=== PATIENT | female | born 1985 | race Caucasian/White ===

== ENCOUNTER 2020-07-28 09:15 | Emergency (ER) | payer SELFPAY ==
[2020-07-28] MEDS ORDERED: KETOROLAC TROMETHAMINE 60 MG/2 ML SDV IM ONE (10:40)
--- NOTE | 2020-07-28 10:56 | ER Document Report ---
ED ENT - General Chief Complaint: Ear Pain Stated Complaint: HEADACHE,EAR PAIN Time Seen by Provider: 07/28/20 10:09 Primary Care Provider: MANOJ SALINAS MD [ACTIVE STAFF] - (Make an appointment for follow up in 2 weeks) Mode of Arrival: Ambulatory - [facility] Location of pain: Ears, Jaw Associated symptoms: Ear drainage. denies: Barotrauma, Chills, Congestion, Cough, Dental pain, Difficulty swallowing Notes: Patient is a healthy 34-year-old female who presents with left ear pain. Patient states that she went swimming in the ocean about 1 week ago. Symptoms began on Monday. She states there was left ear pain. She also heard a pop which helped with the pressure in her ear. She mentions some muffled hearing. Patient has been taking Clindamycin that she had at home, 300 mg 4 times a day since Monday with little relief. States she does have a headache that she attributes to the ear pain. No pain behind the left ear. She also states pain radiates to her jaw. She states that there is some drainage from the left ear that is worse at night with some blood in it. She has had ear infections as a child after swimming. No fevers or chills. - Related Data Allergies/Adverse Reactions: Penicillins Allergy (Verified 07/28/20 09:34) Hives codeine Adverse Reaction (Verified 07/28/20 09:34) GI upset Home Medications: denies Past Medical History - General Information source: Patient - Social History Smoking Status: Current Every Day Smoker Chew tobacco use (# tins/day): No Frequency of alcohol use: Social Drug Abuse: None Family History: Reviewed & Not Pertinent Patient has homicidal ideation: No - Medical History Medical History: Negative - Past Medical History Cardiac Medical History: Reports: None Past Surgical History: Reports: Hx Section - x1 Review of Systems - Review of Systems Constitutional: denies: Chills, Fever, Malaise EENT: Ear pain, Ear discharge. denies: Eye pain, Eye discharge, Tearing, Throat pain, Difficulty swallowing, Dental problem Cardiovascular: denies: Palpitations, Dizziness Respiratory: denies: Cough, Hemoptysis, Short of breath Gastrointestinal: Nausea. denies: No symptoms reported, Abdominal pain, Diarrhea, Vomiting Genitourinary: No symptoms reported Musculoskeletal: denies: Back pain, Muscle pain, Muscle stiffness, Neck pain Skin: denies: Lesions, Lumps, Rash Hematologic/Lymphatic: No symptoms reported Neurological/Psychological: denies: Weakness, Gait changes, Paralysis, Seizure Physical Exam - Vital signs Vitals: Temp Pulse Resp BP Pulse Ox 98.6 F 80 16 136/86 H 99 07/28/20 09:26 07/28/20 09:26 07/28/20 09:26 07/28/20 09:26 07/28/20 09:26 Interpretation: Normal Notes: VITAL SIGNS: Within normal limits. GENERAL: No acute distress, non-toxic appearance. HEAD: Normal with no signs of head trauma. EYES: EOMI, conjunctiva normal, no discharge. EARS: Hearing grossly intact. No mastoid tenderness. No obvious drainage from ear. Perforation of left tympanic membrane visualized. Right ear appears normal. NOSE: Normal. THROAT: Oropharynx is normal. NECK: Normal range of motion, no tenderness, supple, No JVD. CHEST: Clear breath sounds bilaterally. No wheezes, rales, or rhonchi. CARDIAC: Regular rate and rhythm. S1 and S2, without murmurs, gallops, or rubs. VASCULAR: No Edema. ABDOMEN: Normal and soft with no tenderness GENITOURINARY: Normal, No tenderness LYMPATHTIC: No lymphadenopathy noted. MUSCULOSKELETAL: Good range of motion of all major joints. Extremities without clubbing, cyanosis or edema. NEUROLOGICAL: Alert and oriented x 3. No focal sensory or strength deficits. Speech normal. Follows commands appropriately. PSYCHIATRIC: Normal Affect, judgement and mood. SKIN: Normal appearance with no rashes or lesions. - Notes Notes: VITAL SIGNS: Within normal limits. GENERAL: No acute distress, non-toxic appearance. HEAD: Normal with no signs of head trauma. EYES: EOMI, conjunctiva normal, no discharge. EARS: Right ear canal and tympanic membrane appear normal. Left tympanic membrane with perforation and slight non bloody discharge in the ear canal. No evidence of mastoiditis. No discomfort to ear palpation/manipulation or posterior ear palpation. NOSE: Normal. THROAT: Oropharynx is normal. No erythema, no swelling. NECK: Normal range of motion, no tenderness, supple, no JVD. No meningismus. CHEST: Clear breath sounds bilaterally. No wheezes, rales, or rhonchi. CARDIAC: Regular rate and rhythm. S1 and S2, without murmurs, gallops, or rubs. VASCULAR: No Edema. ABDOMEN: Normal and soft with no tenderness. GENITOURINARY: Normal, No tenderness MUSCULOSKELETAL: Good range of motion of all major joints. Extremities without clubbing, cyanosis or edema. NEUROLOGICAL: Alert and oriented x 3. No focal sensory or strength deficits. Speech normal. Follows commands appropriately. PSYCHIATRIC: Normal Affect, judgement and mood. SKIN: Normal appearance with no rashes or lesions. Course - Re-evaluation Re-evalutation: 07/28/20 16:11 Patient's vitals are within normal limits. She is in no acute distress. There does appear to be a perforation in her left tympanic membrane on exam. I do not believe this is mastoiditis. I did discuss with on-call ENT who recommended Ciprodex drops. He recommended this for 2 weeks and then follow-up in the office. Patient is very agreeable to this. She states she feels better after Toradol. I instructed her to stop taking the clindamycin that she had previously. She has a slight headache but otherwise feels better. I offered a CT scan of the head but she states that she has had headaches before and does not want one. I instructed her to keep the ear canal dry. She is very agreeable to the plan. She was given strict return precautions including fever/worsening pain and will follow up with ENT. 07/28/20 19:03 - Vital Signs Vital signs: Temp Pulse Resp BP Pulse Ox 98.2 F 79 18 137/85 H 96 07/28/20 12:51 07/28/20 12:51 07/28/20 12:51 07/28/20 12:51 07/28/20 12:51 Discharge - Discharge Clinical Impression: Perforated left tympanic membrane on examination, Ear pain, left Condition: Stable Disposition: HOME, SELF-CARE Instructions: Use of Ear Drops ([facility]), Otitis Externa ([facility]), Perforated Eardrum ([facility]) Additional Instructions: Please follow-up with ENT in 2 weeks. Return to the ER for any worsening symptoms, fever, chills, or if the ear pain is not improving. Prescriptions: Ciprofloxacin HCl/Dexameth [Ciprodex Otic Suspension] 5 drop LFT_EAR BID 14 Days #7.5 ml Referrals: MANOJ SALINAS MD [ACTIVE STAFF] - (Make an appointment for follow up in 2 weeks)
[2020-07-28 12:52] VITALS: BP 137/85
== END 2020-07-28 12:53 | disposition home or self-care (01) ==
LOC: ER 09:15
DX: H72.92 Unspecified perforation of tympanic membrane, left ear (principal); H92.02 Otalgia, left ear; R51 Headache; F17.200 Nicotine dependence, unspecified, uncomplicated; Z88.0 Allergy status to penicillin; Z88.6 Allergy status to analgesic agent
CPT/HCPCS: 99284; 96372; 96375; 81025; J1885; 96374; 96376

== ENCOUNTER 2020-08-16 12:08 | Emergency (ER) | payer SELFPAY ==
--- NOTE | 2020-08-16 12:49 | ER Document Report ---
HPI - HPI Patient complains to provider of: Right wrist injury Time Seen by Provider: 08/16/20 12:40 Notes: 34-year-old female to the emergency department with complaints of right wrist injury that occurred yesterday evening. She states she was going up the stairs into her home with a bag in her hand. She states she slipped on the steps because they were wet and fell back onto an outstretched hand on the right side. She is right-hand dominant. She states it really hurts to move the wrist. She states she has been icing it and taking [id number] pain medicines with some relief. Denies any elbow or shoulder pain. Did not hit her head did not have loss of consciousness. - ROS Systems Reviewed and Negative: Yes All other systems reviewed and negative - CONSTITUTIONAL Constitutional: DENIES: Fever, Chills - EENT EENT: DENIES: Sore Throat, Ear Pain - NEURO Neurology: DENIES: Headache - CARDIOVASCULAR Cardiovascular: DENIES: Chest pain - RESPIRATORY Respiratory: DENIES: Trouble Breathing, Coughing - GASTROINTESTINAL Gastrointestinal: DENIES: Abdominal Pain, Nausea, Patient vomiting, Diarrhea - MUSCULOSKELETAL Musculoskeletal: REPORTS: Extremity pain Notes: Right wrist injury and pain - DERM Skin Color: Normal Skin Problems: None Past Medical History - General Information source: Patient - Social History Smoking Status: Current Every Day Smoker Frequency of alcohol use: Social Drug Abuse: None Family History: Reviewed & Not Pertinent Past Surgical History: Reports: Hx Section - x1 Vertical Provider Document - CONSTITUTIONAL Agree With Documented VS: Yes Exam Limitations: No Limitations General Appearance: WD/WN - HEENT HEENT: Atraumatic, Normocephalic, PERRLA - NECK Neck: Normal Inspection, Supple - RESPIRATORY Respiratory: Breath Sounds Normal, No Respiratory Distress. negative: Rales, Rhonchi, Wheezing - CARDIOVASCULAR Cardiovascular: Regular Rate, Regular Rhythm, No Murmur - GI/ABDOMEN Gastrointestinal: Abdomen Soft, Abdomen Non-Tender - MUSCULOSKELETAL/EXTREMETIES Notes: There is tenderness to palpation over the right wrist joint dorsally. Patient also does have right snuffbox tenderness. There is mild edema. There is no gross deformity. Handgrip is reduced in this hand due to pain in the wrist. Approximately a 4 out of 5 in comparison to the left hand manager public which is 5 out of 5. Cap refill is less than 2 seconds in all fingers. She can move all fingers against resistance in flexion extension with 5 out of 5 strength. She has no tenderness to palpation to the right elbow and shoulder. - NEURO Level of Consciousness: Awake, Alert, Appropriate Motor/Sensory: No Motor Deficit, No Sensory Deficit - DERM Integumentary: Warm, Dry Course - Vital Signs Vital signs: Temp Pulse Resp BP Pulse Ox 97.5 F 98 18 140/93 H 96 08/16/20 12:13 08/16/20 12:13 08/16/20 12:13 08/16/20 12:13 08/16/20 12:13 - Laboratory Laboratory results interpreted by me: 08/16/20 Wrist X-Ray 08/16/20 12:48 IMPRESSION: No acute fracture or malalignment. Soft tissue swelling. - Diagnostic Test Radiology reviewed: Image reviewed Procedures - Immobilization Right Wrist Time completed: 13:43 Pre-Proc Neuro Vasc Exam: Normal Immobilizer type: Thumb spica Performed by: PCT Post-Proc Neuro Vasc Exam: Normal Alignment checked and good: Yes Discharge - Discharge Clinical Impression: Wrist injury Qualifiers: Encounter type: initial encounter Laterality: right Qualified Code(s): S69.91XA - Unspecified injury of right wrist, hand and finger(s), initial encounter Right wrist sprain Qualifiers: Encounter type: initial encounter Qualified Code(s): S63.501A - Unspecified sprain of right wrist, initial encounter Condition: Stable Disposition: HOME, SELF-CARE Instructions: Wrist Sprain ([facility]) Additional Instructions: Keep wrist splinted without fail until you see orthopedist. Take Medicines as prescribed. Return if worsening. Follow up with Ortho in one week. Prescriptions: Tramadol HCl [Ultram 50 mg Tablet] 50 mg PO Q6H PRN #10 tab PRN Reason: Forms: Special Work Note Referrals: LAXMI MARTINEZ DO [ACTIVE STAFF] - Follow up in 1 week (for ortho follow up)
--- NOTE | 2020-08-16 13:10 | RADIOLOGY REPORT (SQ) ---
EXAM DESCRIPTION: WRIST RIGHT 3 VIEWS IMAGES COMPLETED DATE/TIME: 08/16/2020 12:56 pm REASON FOR STUDY: wrist pain, FOOSH, snuff box tenderness COMPARISON: None. NUMBER OF VIEWS: Three views. TECHNIQUE: AP, lateral, and oblique radiographic images acquired of the right wrist. LIMITATIONS: None. FINDINGS: MINERALIZATION: Normal. BONES: No acute fracture or dislocation. No worrisome bone lesions. Normal alignment. SOFT TISSUES: Mild diffuse soft tissue swelling. No foreign body. OTHER: No other significant finding. IMPRESSION: No acute fracture or malalignment. Soft tissue swelling. TECHNICAL DOCUMENTATION: JOB ID: [id number] [email or web address]- All Rights Reserved Reading location - IP/workstation name: [email or web address]
[2020-08-16 13:43] VITALS: BP 145/100
== END 2020-08-16 13:42 | disposition home or self-care (01) ==
LOC: ER 12:08
DX: S63.501A Unspecified sprain of right wrist, initial encounter (principal); S69.91XA Unspecified injury of right wrist, hand and finger(s), initial encounter; W10.9XXA Fall (on) (from) unspecified stairs and steps, initial encounter; F17.200 Nicotine dependence, unspecified, uncomplicated
CPT/HCPCS: 99283